=== PATIENT | female | born 1950 | race Caucasian/White ===

== ENCOUNTER → 2018-05-01 10:24 | Outpatient (POV) | payer OTHER, SELFPAY | PROVIDERS: PCP Family Medicine; Visit Provider Nurse Practitioner Acute Care | DX: Z00.00 Encounter for general adult medical examination without abnormal findings (principal) ==

== ENCOUNTER → 2019-11-20 15:41 | Outpatient (CLI) | payer OTHER, SELFPAY ==
[2019-11-20 15:55] LABS: Adenovirus F 40/41, stool Not Detected (NotDetected); Astrovirus Not Detected (NotDetected); Campylobacter Not Detected (NotDetected); Clostridium Difficile A/B, PCR Not Detected (NotDetected); Cryptosporidium Not Detected (NotDetected); Cyclospora Cayetanesis Not Detected (NotDetected); Entamoeba histolytica Not Detected (NotDetected); Enteroaggregative E coli Not Detected (NotDetected); Enteropathogenic E coli Not Detected (NotDetected); Enterotoxigenic E coli Not Detected (NotDetected); Giardia lamblia Not Detected (NotDetected); Norovirus Not Detected (NotDetected); Plesimonas Shigalloides, PCR Not Detected (NotDetected); Rotavirus A Not Detected (NotDetected); Salmonella, PCR Not Detected (NotDetected); Sapovirus Not Detected (NotDetected); Shiga-like toxin E coli Not Detected (NotDetected); Shigella Enterovasive E coli Not Detected (NotDetected); Vibrio Cholerae Not Detected (NotDetected); Vibrio, PCR Not Detected (NotDetected); Yersinia Entercolitica, PCR Not Detected (NotDetected)
== END ==
PROVIDERS: Nurse Practitioner Family; Visit Provider Internal Medicine Gastroenterology
DX: K30 Functional dyspepsia (principal); K58.2 Mixed irritable bowel syndrome; R19.4 Change in bowel habit; R10.84 Generalized abdominal pain; R14.0 Abdominal distension (gaseous)
CPT/HCPCS: 87507

== ENCOUNTER → 2022-09-21 09:06 | Outpatient (CLI) | payer OTHER, SELFPAY ==
--- NOTE | 2022-09-21 09:09 | XR_ITS ---
FINAL REPORT CLINICAL HISTORY: bunion FINDINGS: Left foot Three views were obtained. There is no acute fracture or dislocation. There are mild degenerative changes. Calcaneal spurs are identified. No soft tissue abnormality is identified. IMPRESSION: No acute process. Reviewed, Interpreted and Dictated by Michael Allen III, MD Transcribed by Umu Mann Authenticated and . [facility]
--- NOTE | 2022-09-21 09:09 | XR_ITS ---
FINAL REPORT CLINICAL HISTORY: bunion FINDINGS: Right foot Three views were obtained. There is no acute fracture or dislocation. There is hallux valgus deformity. Mild degenerative changes are present. There are calcaneal spurs. No soft tissue abnormality is identified. IMPRESSION: Hallux valgus deformity. Reviewed, Interpreted and Dictated by Michael Allen III, MD Transcribed by Umu Mann Authenticated and [facility]
--- NOTE | 2022-09-21 11:24 | XR_ITS ---
FINAL REPORT CLINICAL HISTORY: pre-op testing FINDINGS: SINGLE-VIEW CHEST The heart size is normal. The mediastinum is normal. There is mild right base atelectasis or scar. The left lung is clear. There is no pneumothorax. IMPRESSION: Right base atelectasis or scar. Reviewed, Interpreted and Dictated by Michael Allen III, MD Transcribed by Umu Mann Authenticated and [facility]
[2022-09-21 12:55] LABS: Basophils # 0.1 K/mm3 (0-0.2); Basophils % 1.1 % (0.1-2.0); Eosinophils # 0.1 K/mm3 (0.0-0.4); Eosinophils % 0.8 % (0.1-12.0); Hematocrit 46.2 % (37.0-47.0); Hemoglobin 14.8 g/dL (12.2-16.2); Lymphocytes # 2.6 K/mm3 (0.7-4.5); Mean Corpuscular Hemoglobin 28.6 pg (27.0-31.2); Mean Corpuscular Volume 89.4 fl (81-99); Mean Platelet Volume 8.3 fl (7.4-10.4); Monocytes # 0.5 K/mm3 (0.1-1.0); Neutrophils # 8.1 K/mm3 (1.8-7.8); Neutrophils % 71.1 % (37.0-80.0); Platelet Count 362 K/mm3 (142-424); Red Blood Count 5.16 M/mm3 (4.20-5.40); Red Cell Distribution Width 13.2 % (11.5-17.5); White Blood Count 11.4 K/mm3 (4.8-10.8)
[2022-09-21 15:37] LABS: Alanine Aminotransferase 21 U/L (12-78); Albumin Level 4.3 g/dl (3.5-5.0); Albumin/Globulin Ratio 1.8 (1.1-1.8); Alkaline Phosphatase 130 U/L (38-126); Anion Gap 15.8 mEq/L (5-15); Aspartate Amino Transferase 23 U/L (14-36); Bilirubin,Total 0.4 mg/dl (0.2-1.3); Blood Urea Nitrogen 24 mg/dl (7-17); Calcium 10.3 mg/dl (8.4-10.2); Carbon Dioxide 25 mmol/L (22.0-30.0); Chloride 104 mmol/L (98-107); Estimated Glomerular Filt Rate 61 ml/min (>60); GFR (African American) 74 ML/MIN (>60); Globulin 2.4 g/dL (1.3-3.2); Glucose 101 mg/dl (74-100); Potassium 4.8 mmoL/L (3.5-5.1); Sodium 140 mmol/L (136-145); Total Protein,Serum 6.7 g/dl (6.3-8.2)
[2022-09-29 09:19] LABS: 1,25 Dihydroxy Vitamin D 63 pg/mL (.); 1,25-Dihydroxy, Vitamin D-2 <10 pg/mL (.); 1,25-Dihydroxy, Vitamin D-3 59 pg/mL (.)
== END ==
PROVIDERS: PCP Emergency Medicine; Visit Provider Podiatrist
DX: Z01.818 Encounter for other preprocedural examination (principal); M21.611 Bunion of right foot
CPT/HCPCS: 36415; 71045; 73630; 80053; 82652; 85025

== ENCOUNTER 2022-09-29 11:10 | Day surgery (SDC) | payer OTHER, SELFPAY ==
[2022-09-27 09:33] VITALS: BMI 32.5
[2022-09-29] VITALS (13 sets, daily range): BP systolic 106–168; BP diastolic 51–97; PULSE 65–116; RESP 14–19; TEMP 36.1–43; O2SAT 92–97
--- NOTE | 2022-09-29 | XR_ITS ---
FINAL REPORT CLINICAL HISTORY: IN OR, FT 1.21 FINDINGS: FLUORO TIME PROCEDURE: Fluoroscopy in the operating room. FINDINGS: Fluoroscopy time was provided by the radiology department for the clinical service. Three films were obtained. Fluoroscopy exposure time: 1.21 minute IMPRESSION: See above Reviewed, Interpreted and Dictated by Michael Allen III, MD Transcribed by Valorie Figueroa Authenticated and [facility]
[2022-09-29 12:02] LABS: POC Glucose,Bedside 132 (70-110)
--- NOTE | 2022-09-29 13:17 | EXP.OP.NOTE ---
Date of procedure: 09/29/22 Pre-op Diagnosis:: Right hallux valgus Right hammertoe 2nd digit Right metatarsalgia Post-op Diagnosis:: Same + Intercuneiform ligament instability Procedure performed:: Right lapidus bunionectomy Right ORIF intercuneiform ligament Right 2nd hammertoe repair (PIPJ implant AD) Right 2nd MPJ capsulotomy Application of allograft Surgeon:: Liat Matos DPM FOOD SANITARIAN:: Mehdi Barajas Anesthesia: GETA and regional (Right pop block) Estimated blood loss (mL): 20 Clinical Note:: Patient is a 72-year-old female who has had bunion pain, worsening over the last year. The patient has tried modification of shoe gear, taping, strapping, inserts, ice elevation, NSAIDs. She does not smoker. She is unable to take Aleve. She has a history of heart disease. 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 She is active and the bunion pain is preventing her from doing some activities of daily living. After a long discussion with the patient in regards to the conservative versus surgical treatment for the bunion deformity, the patient has elected to proceed with surgery because they have failed conservative treatment and continue to have pain and worsening symptoms affecting daily activities. Patient understands she will not be able to drive after right foot surgery. She understands it may be 6-8 weeks before she is comfortable to walk fully and attempt to put a regular shoe on. She understands postop symptoms and swelling can last 6-12 months. The patient has been instructed on the planned procedure, all risk versus benefits of the procedure to include bleeding, infection, nerve and blood vessel damage, temporary or permanent nerve pain, skin/wound healing complications, need for further surgery, delay in healing of soft tissue or bone, failure of bones to heal, non-union, mal-union, prolonged pain and recovery, prolonged or permanent swelling, CRPS/RSD, DVT/PE and anesthetic complications. No guarantees were given. All questions fully answered. The patient verbalized understanding and agreed to proceed with surgery. Written consent was obtained. Medical and cardiac clearance obtained. Operative findings:: Right hallux valgus deformity noted with degenerative changes to the first metatarsal cuneiform joint. Semirigid second PIPJ hammertoe deformity with arthritic changes. Long second toe. Once the Lapidus bunionectomy was complete, splay test performed. There was intercuneiform instability with splaying and gapping indicating ligamentous instability. Area was reduced and fixated. After screw was inserted, negative splay test and gapping of the intercuneiforms. Operative note:: On this date and time, the patient was deemed an appropriate surgical candidate. With informed consent signed, the patient was taken to the operating theater. The patient was positioned supine. General anesthesia was induced. Tourniquet was applied to the thigh. The right lower extremity was prepped and draped in normal sterile fashion. IV Ancef infused. Right Lapidus bunionectomy, allograft: Tourniquet was inflated 250 mmHg. Attention directed to the dorsal medial foot where an incision was mapped out over the first metatarsal cuneiform joint. Dissection carried down full-thickness down to the level of the bone with care taken to maintain surgical hemostasis and preserve neurovascular structures. There was arthritic changes noted to the dorsal lateral aspect of the first tarsometatarsal (TMT) joint. First TMT release performed. Attention to is directed to the first interspace where a stab incision was made at the MTP joint just lateral to the EHL tendon. Lateral capsule incised and a complete suspensory ligament release was completed. There was reduction of the hallux valgus deformity noted. Next a pin was inserted dorsal medial parallel to the first TMT joint and the bunion deformity was reduced. Next in standard technique the Lapiplasty 3in1 guide and positioner was inserted into t
--- NOTE | 2022-09-29 15:30 | XR_ITS ---
PROCEDURE INFORMATION: Exam: XR Right Foot Exam date and time: 09/29/2022 4:26 PM Age: 72 years old Clinical indication: Pain; Foot; Right; Prior surgery; Surgery date: Post-operative (0-2 days); Additional info: Post op bunionectomy TECHNIQUE: Imaging protocol: Radiologic exam of the Right foot. Views: 3 or more views. COMPARISON: SD XR FOOT RT 2V 09/29/2022 12:00 AM FINDINGS: Bones/joints: Plaster splint in place limiting soft tissue and bony evaluation. Arthrodesis now demonstrated at the 1st tarsometatarsal articulation. Previously demonstrated hallux valgus is no longer present. Fixation pin traversing the 2nd phalanx to the level of the base of the 1st proximal phalanx. Soft tissues: Swelling suboptimally visualized. IMPRESSION: Postoperative changes as described above.
--- NOTE | 2022-09-29 16:02 | SUR.OPER ---
1600- family updated of pt current status at this time.
--- NOTE | 2022-09-29 16:23 | EXP.ANES.I ---
[facility] Anesthesia Record Part I Anesthesia Record I Intake, IV Amount: 900 Estimated blood loss (mL): 20 Urine output (mL): 0 Blood Pressure: 168/51 SaO2: 92 Pulse Rate: 112 Respiratory Rate: 18 Temperature: 97 F Patient is:: Awake and Stable Stable to PACU at:: 16:18
--- NOTE | 2022-09-30 07:26 | EXP.ANES.II ---
[facility] Anesthesia Record Part II Anesthesia Record Part II Anesthesia Complications:: None
--- NOTE | 2022-09-30 07:47 | EXP.ANES.II ---
[facility] Anesthesia Record Part II Anesthesia Record Part II Discharge Time: 16:48 Destination: Surgical Day Care (OP Surgery) PACU nurse assessment reviewed?: Yes Patient Condition:: Good Anesthesia Complications:: None Swallowing reflex intact?: Yes Cyanosis?: No Blood Pressure: 166/88 Pulse Rate: 114 Temperature: 97.6 F Mental Status: Alert & Oriented Pain level:: 2 Nausea and/or vomitting:: None Intake, IV Amount: 0
[2022-09-30 07:49] VITALS: BP 166/88; PULSE 114; TEMP 36.4
== END 2022-09-29 17:50 | disposition home or self-care (01) ==
PROVIDERS: PCP Emergency Medicine; Visit Provider Podiatrist
PROC: (CPT 28270; principal; 2022-09-29 12:30)
DX: M21.611 Bunion of right foot (principal); M20.11 Hallux valgus (acquired), right foot; M20.41 Other hammer toe(s) (acquired), right foot; S93.314A Dislocation of tarsal joint of right foot, initial encounter
CPT/HCPCS: 28270; 28285; 28555; 28297; 73620; 73630; 76000; 82962; 96374; C1713; C1762; C1776; J2405

== ENCOUNTER → 2022-10-21 10:28 | Outpatient (CLI) | payer OTHER, SELFPAY ==
--- NOTE | 2022-10-21 10:50 | XR_ITS ---
FINAL REPORT CLINICAL HISTORY: post op COMPARISON: September 21, 2022 FINDINGS: RIGHT FOOT Three views of the right foot were obtained. There are postoperative changes from bunionectomy with arthrodesis of the 2nd PIP and D IP joints and 1st tarsometatarsal joint. Hardware is unremarkable. The joint spaces are preserved. The soft tissues are unremarkable. Tarsal moderate are Judah IMPRESSION: Postoperative changes as above. Reviewed, Interpreted and Dictated by John Patton MD Transcribed by Valorie Figueroa Authenticated and [facility]
== END ==
PROVIDERS: PCP Nurse Practitioner Family; Visit Provider Podiatrist
DX: M79.671 Pain in right foot (principal); Z98.890 Other specified postprocedural states
CPT/HCPCS: 73630

== ENCOUNTER → 2022-11-11 09:28 | Outpatient (CLI) | payer OTHER, SELFPAY ==
--- NOTE | 2022-11-11 09:35 | XR_ITS ---
FINAL REPORT CLINICAL HISTORY: post op sep 29 COMPARISON: 10/21/2022 FINDINGS: RIGHT FOOT Three views of the right foot demonstrate postoperative changes of arthrodesis of the 1st tarsometatarsal joint, medial midfoot and 2nd PIP joint. There has been interval removal of a pin from the 2nd digit. There is generalized osteopenia. There are scattered degenerative changes. The soft tissues are unremarkable. IMPRESSION: Postoperative changes as above. Reviewed, Interpreted and Dictated by John Patton MD Transcribed by Valorie Figueroa Authenticated and [facility]
== END ==
PROVIDERS: PCP Nurse Practitioner Family; Visit Provider Podiatrist
DX: M79.671 Pain in right foot (principal); Z98.890 Other specified postprocedural states
CPT/HCPCS: 73630

== ENCOUNTER → 2022-12-20 10:04 | Outpatient (CLI) | payer OTHER, SELFPAY ==
--- NOTE | 2022-12-20 10:10 | XR_ITS ---
FINAL REPORT CLINICAL HISTORY: post op FINDINGS: RIGHT FOOT: Three views of the right foot were obtained. There are postoperative changes at the 1st tarsal metatarsal joint with a side plate and multiple screws. A screw extends into the middle cuneiform. Postoperative changes are noted in the 2nd PIP joint with a screw present. [id number] degenerative changes are seen, greatest at the 1st metatarsophalangeal joint. Calcaneal spurs are noted. IMPRESSION: Postoperative changes as above. Reviewed, Interpreted and Dictated by Michael Allen III, MD Transcribed by Justina Landis Authenticated and [facility]
== END ==
PROVIDERS: PCP Emergency Medicine; Visit Provider Podiatrist
DX: M79.671 Pain in right foot (principal); Z98.890 Other specified postprocedural states
CPT/HCPCS: 73630

== ENCOUNTER → 2023-03-29 10:53 | Outpatient (CLI) | payer OTHER, SELFPAY ==
--- NOTE | 2023-03-29 10:53 | CT_ITS ---
FINAL REPORT CLINICAL HISTORY: right foot pain since surgery, swelling FINDINGS: CT RIGHT FOOT WITHOUT CONTRAST Technique: Axial images through the right foot were performed by computed tomography. Sagittal and coronal reconstruction images were performed. This study was performed with techniques to keep radiation doses as low as reasonably achievable (ALARA). Individualized dose reduction techniques using automated exposure control or adjustment of mA and/or kV according to the patient's size were employed. 3D reconstruction images were performed and submitted for review. There is postoperative change of the medial midfoot and forefoot with side plates and multiple screws. There is a screw in the second PIP joint. There are mild and moderate degenerative changes. Calcaneal spurs are present. No acute fracture is identified. No dislocation identified. No soft tissue abnormality. IMPRESSION: Postoperative and degenerative changes. No acute process. Reviewed, Interpreted and Dictated by Michael Allen III, MD Transcribed by Dre San Authenticated and [facility]
== END ==
PROVIDERS: PCP Emergency Medicine; Visit Provider Podiatrist
DX: M79.671 Pain in right foot (principal); R60.0 Localized edema
CPT/HCPCS: 73700